=== PATIENT | male | born 1945 | race Caucasian/White ===

== ENCOUNTER 2017-10-23 07:38 | Inpatient (IN) | payer MEDICARE ==
[~2017-10-23] VITALS: Ht 175.3 cm; Wt 87.5 kg
[2017-10-23] MEDS ORDERED: LACTATED RINGERS 1,000 ML IV SCH (08:54)
[2017-10-23] MEDS ORDERED: PIOG45TA4 PO (09:13)
[2017-10-23] MEDS ORDERED: NITR0.4T SL (09:13)
[2017-10-23] MEDS ORDERED: LISI40TA PO (09:13)
[2017-10-23] MEDS ORDERED: ASPI-650 PO (09:13)
[2017-10-23] MEDS ORDERED: CLIN150C14 PO (09:13)
[2017-10-23] MEDS ORDERED: LEVO150T5 PO (09:13)
[2017-10-23] MEDS ORDERED: FENO145T13 PO (09:13)
[2017-10-23] MEDS ORDERED: INDO50CA PO (09:13)
[2017-10-23] MEDS ORDERED: ATOR40TA78 PO (09:13)
[2017-10-23] MEDS ORDERED: METO50TA82 PO (09:13)
[2017-10-23] MEDS ORDERED: SITA100T PO (09:13)
[2017-10-23] MEDS ORDERED: OXYC5CAP2 PO (09:13)
[2017-10-23] MEDS ORDERED: TAMS0.4C2 PO (09:13)
[2017-10-23] MEDS ORDERED: PLEASE ENTER HEIGHT AND WEIGHT MC SCH (09:30)
[2017-10-23] MEDS ORDERED: PLEASE ENTER ALLERGIES MC SCH (09:30)
[2017-10-23 09:39] LABS: O2 FLOW ROOM AIR L/min
[2017-10-23 09:40] VITALS: BP 98/63
[2017-10-23 09:55] LABS: MEAN CORPUSCULAR HEMOGLOBIN 31.2 pg (27.5-34.5); MEAN CORPUSCULAR HGB CONC 33.6 g/dL (33.2-36.2); MEAN CORPUSCULAR VOLUME 93.1 fL (81-97); MEAN PLATELET VOLUME 8.4 fL (7.4-10.4); PLATELET COUNT 424 x10^3/uL (130-400); RED BLOOD COUNT 3.91 x10^6/uL (4.38-5.82); RED CELL DISTRIBUTION WIDTH 14.3 % (9.4-14.8)
[2017-10-23 10:01] LABS: ALANINE AMINOTRANSFERASE 36 U/L (12-78); ANION GAP 14 mmol/L (5-15); CHLORIDE 100 mmol/L (98-107); CREATININE 8.07 mg/dL (0.7-1.3)
[2017-10-23 10:03] LABS: BILIRUBIN,TOTAL 0.8 mg/dL (0.2-1.0); TOTAL PROTEIN 6.6 g/dL (6.4-8.2)
[2017-10-23 10:04] LABS: ALKALINE PHOSPHATASE 519 U/L (45-117)
[2017-10-23 10:09] LABS: INTERNATIONAL NORMALIZED RATIO 1.25 (0.93-1.1); PROTHROMBIN TIME 12.9 Seconds (9.6-11.5)
[2017-10-23 10:12] LABS: BASOPHILS # (AUTO) 0.06 x10^3/uL (0-0.1); BASOPHILS % (AUTO) 1 % (0-1); EOSINOPHILS # (AUTO) 0.14 x10^3/uL (0-0.4); EOSINOPHILS % (AUTO) 1 % (1-7); LYMPHOCYTES # (AUTO) 0.41 x10^3/uL (1-3.4); LYMPHOCYTES % (AUTO) 3 % (22-44); MD SCAN; MONOCYTES # (AUTO) 0.74 x10^3/uL (0.2-0.8); MONOCYTES % (AUTO) 6 % (2-9); NEUTROPHILS # (AUTO) 11.43 x10^3/uL (1.8-6.8); NEUTROPHILS % (AUTO) 90 % (42-75)
[2017-10-23 10:30] VITALS: BP 114/72
[2017-10-23] MEDS ORDERED: ONDANSETRON ODT 4 MG PO PRN (11:30)
[2017-10-23] MEDS ORDERED: DOCUSATE 100 MG CAPSULE PO PRN (11:30)
[2017-10-23] MEDS ORDERED: BISACODYL 10 MG SUPP PR PRN (11:30)
[2017-10-23 11:58] LABS: % IRON SATURATION 15 % (20-55); IRON LEVEL 30 mcg/dL (65-175); TOTAL IRON BINDING CAPACITY 200 mcg/dL (250-450)
[2017-10-23] MEDS: SODIUM BICARB 8.4%,50ML SYR. 150 MEQ in DEXTROSE 5% 1,000 ML IV SCH ×2 (12:35→20:34)
[2017-10-23 12:42] LABS: CALCIUM 9.1 mg/dL (8.5-10.1)
[2017-10-23 12:47] LABS: HEMOGLOBIN A1C 7.7 % (4.2-6.3)
[2017-10-23 13:25] VITALS: BP 108/67
[2017-10-23 17:53] LABS: CHLORIDE,URINE RANDOM < 10 mmol/L; POTASSIUM,URINE RANDOM 62 mmol/L; SODIUM,URINE RANDOM 12 mmol/L
[2017-10-23 17:57] LABS: MICROSCOPIC INDICATED
[2017-10-23 18:03] LABS: CULTURE INDICATED? YES
[2017-10-23] MEDS: INSULIN LISPRO 100 UNITS/ML, PEN SQ-INSULIN SCH ×2 (18:44→21:45)
[2017-10-23 20:09] VITALS: BP_SYST 129; BP_SYST 96; BP_DIAS 58; BP_DIAS 65
[2017-10-23] MEDS: LACTULOSE 10 GM/15 ML UDC PO SCH (20:34)
[2017-10-24 00:44] VITALS: BP 107/66
[2017-10-24] MEDS: SODIUM BICARB 8.4%,50ML SYR. 150 MEQ in DEXTROSE 5% 1,000 ML IV SCH (03:00)
[2017-10-24 05:59] LABS: MEAN CORPUSCULAR HEMOGLOBIN 31.7 pg (27.5-34.5); MEAN CORPUSCULAR HGB CONC 34.6 g/dL (33.2-36.2); MEAN CORPUSCULAR VOLUME 91.7 fL (81-97); MEAN PLATELET VOLUME 8.5 fL (7.4-10.4); PLATELET COUNT 429 x10^3/uL (130-400); RED BLOOD COUNT 3.92 x10^6/uL (4.38-5.82); RED CELL DISTRIBUTION WIDTH 14.2 % (9.4-14.8)
[2017-10-24 06:11] LABS: CHLORIDE 92 mmol/L (98-107)
[2017-10-24 06:19] LABS: ALANINE AMINOTRANSFERASE 43 U/L (12-78); ALKALINE PHOSPHATASE 530 U/L (45-117); ANION GAP 13 mmol/L (5-15); BILIRUBIN,TOTAL 1.2 mg/dL (0.2-1.0); CALCIUM 8.5 mg/dL (8.5-10.1); CHOL/HDL RATIO 3.1; CHOLESTEROL, TOTAL 107 mg/dL (140-239); CREATININE 6.57 mg/dL (0.7-1.3); HDL CHOL % 32 % (26-37); HDL CHOLESTEROL (DIRECT) 34 mg/dL (40-60); LDL CHOLESTEROL,CALCULATED 41 mg/dL (54-169); LDL/HDL RATIO 1.2 (0.5-3.0); TOTAL PROTEIN 6.6 g/dL (6.4-8.2); TRIGLYCERIDES 159 mg/dL (50-200); VLDL CHOLESTEROL 32 mg/dL (0-25)
[2017-10-24 06:23] LABS: BASOPHILS % (AUTO) 0 % (0-1); EOSINOPHILS # (AUTO) 0.02 x10^3/uL (0-0.4); EOSINOPHILS % (AUTO) 0 % (1-7); LYMPHOCYTES # (AUTO) 0.18 x10^3/uL (1-3.4); LYMPHOCYTES % (AUTO) 1 % (22-44); MD SCAN; MONOCYTES # (AUTO) 0.56 x10^3/uL (0.2-0.8); MONOCYTES % (AUTO) 3 % (2-9); NEUTROPHILS # (AUTO) 16.08 x10^3/uL (1.8-6.8); NEUTROPHILS % (AUTO) 96 % (42-75)
[2017-10-24 07:50] VITALS: BP 130/80
[2017-10-24] MEDS: INSULIN LISPRO 100 UNITS/ML, PEN SQ-INSULIN SCH (07:56)
[2017-10-24] MEDS: LACTULOSE 10 GM/15 ML UDC PO SCH (07:57)
[2017-10-24 08:28] VITALS: BP 142/75
[2017-10-24] MEDS ORDERED: LEVOTHYROXINE 150 MCG TABLET PO SCH (09:00)
[2017-10-24] MEDS ORDERED: TAMSULOSIN 0.4 MG CAP.ER.24H PO SCH (09:00)
[2017-10-24] MEDS ORDERED: METOPROLOL TARTRATE 50 MG TABLET PO SCH (09:00)
[2017-10-24] MEDS ORDERED: SENNA/DOCUSATE TABLET PO SCH (09:00)
[2017-10-24] MEDS ORDERED: LORazepam 2 MG/ML, 1ML IVPush PRN (09:30)
== END 2017-10-24 11:23 | disposition expired | DRG 441 ==
LOC: OUT 07:38 → 5SO 10:25 → 3NW 10-24 11:15
PROVIDERS: ADMIT Hospitalist; ATTEND Internal Medicine
DX: K72.90 Hepatic failure, unspecified without coma (principal); N17.0 Acute kidney failure with tubular necrosis; E43 Unspecified severe protein-calorie malnutrition; R18.0 Malignant ascites; C25.9 Malignant neoplasm of pancreas, unspecified; E87.2 Acidosis; R34 Anuria and oliguria; E11.65 Type 2 diabetes mellitus with hyperglycemia; E46 Unspecified protein-calorie malnutrition; E87.1 Hypo-osmolality and hyponatremia; C78.7 Secondary malignant neoplasm of liver and intrahepatic bile duct; Z68.28 Body mass index [BMI] 28.0-28.9, adult; E03.9 Hypothyroidism, unspecified; D72.829 Elevated white blood cell count, unspecified; D63.8 Anemia in other chronic diseases classified elsewhere; E78.5 Hyperlipidemia, unspecified; E87.5 Hyperkalemia; E78.00 Pure hypercholesterolemia, unspecified; E87.70 Fluid overload, unspecified; I10 Essential (primary) hypertension; I25.10 Atherosclerotic heart disease of native coronary artery without angina pectoris; N40.0 Benign prostatic hyperplasia without lower urinary tract symptoms; R62.7 Adult failure to thrive; Z51.5 Encounter for palliative care; F10.10 Alcohol abuse, uncomplicated; Z66 Do not resuscitate; M10.9 Gout, unspecified; F17.200 Nicotine dependence, unspecified, uncomplicated; Z88.0 Allergy status to penicillin; Z95.5 Presence of coronary angioplasty implant and graft; Z82.49 Family history of ischemic heart disease and other diseases of the circulatory system; Z85.07 Personal history of malignant neoplasm of pancreas; Z85.05 Personal history of malignant neoplasm of liver
CPT/HCPCS: 36415; 36600; 76770; 80053; 80061; 81001; 82306; 82310; 82330; 82436; 82570; 82803; 82962; 83036; 83540; 83550; 83690; 83735; 83935; 83970; 84100; 84133; 84300; 84550; 85025; 85610; 85730; 87086; 87205; 93005; 93306; J2270; J7070; J1815; J2060; J7120